=== PATIENT | female | born 1985 | race Asian ===

== ENCOUNTER 2017-08-05 15:04 | Emergency (ER) | payer MEDICAID ==
[2017-08-05 15:39] VITALS: BP 96/54
--- NOTE | 2017-08-05 16:28 | ED Physician Documentation ---
PD HPI SKIN - Stated complaint Stated Complaint: RASH - Chief complaint Chief Complaint: Wound - History obtained from History obtained from: Patient - History of Present Illness Timing - onset: Other (She has a history of rosacea. 2 days ago she did some whitefish, she is not work sure what kind. About half an hour later developed itchy red rash of the face and neck, no other places. 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 - Present Medications Home Medications: Ambulatory Orders Medication Instructions Recorded Confirmed hydrOXYzine PAMOATE [Vistaril] 25 mg PO Q6H PRN #15 capsule 08/05/17 predniSONE [Deltasone] 60 mg PO DAILY 5 Days tablet 08/05/17 - Allergies Allergies/Adverse Reactions: Allergies Allergy/AdvReac Type Severity Reaction Status Date / Time No Known Drug Allergies Allergy Verified 08/05/17 15:40 - Social History Does the pt smoke?: No Smoking Status: Never smoker Does the pt drink ETOH?: No Does the pt have substance abuse?: No - Immunizations Immunizations are current?: Yes - POLST Patient has POLST: No PD ED PE NORMAL - Vitals Vital signs reviewed: Yes - General General: Alert and oriented X 3, No acute distress - HEENT HEENT: PERRL, EOMI - Neck Neck: Supple, no meningeal sign, No bony TTP - Derm Derm: Other (She has A red raised rash over the anterior neck and face. She also has rosacea but she says that is chronic. The rash does not involve the arms, trunk except for very upper part of the chest anteriorly, or the palms.) - Neuro Neuro: Alert and oriented X 3, Normal speech - Psych Psych: Normal mood, Normal affect Results - Vitals Vitals: Vital Signs - 24 hr 08/05/17 15:25 Temperature 36.5 C Heart Rate 73 Respiratory 18 Rate Blood Pressure 96/54 L O2 Saturation 100 Oxygen O2 Source Room air Departure - Departure Disposition: 01 Home, Self Care Clinical Impression: Allergic reaction Qualifiers: Encounter type: initial encounter Qualified Code(s): T78.40XA - Allergy, unspecified, initial encounter Condition: Good Record reviewed to determine appropriate education?: Yes Instructions: ED Allergic React Food Prescriptions: hydrOXYzine PAMOATE [Vistaril] 25 mg PO Q6H PRN #15 capsule PRN Reason: Itching predniSONE [Deltasone] 60 mg PO DAILY 5 Days tablet Comments: Call your doctor to arrange a follow-up appointment, make the next available appointment. In the interim, return anytime if worse or if new symptoms develop.
== END 2017-08-05 16:35 | disposition home or self-care (01) ==
LOC: ED 15:04
DX: T78.40XA Allergy, unspecified, initial encounter (principal); X58.XXXA Exposure to other specified factors, initial encounter
CPT/HCPCS: 99283

== ENCOUNTER 2018-04-27 10:48 | Emergency (ER) | payer MEDICAID ==
--- NOTE | 2018-04-27 12:02 | ED Physician Documentation ---
PD HPI SKIN - Stated complaint Stated Complaint: ALLERGIC REACTION/FACIAL SWELLING - Chief complaint Chief Complaint: Wound - History obtained from History obtained from: Patient - History of Present Illness Timing - onset: Yesterday Timing - duration: Days (1) Timing - details: Abrupt onset, Still present Location: Face, Neck Quality / character: Itchy, Painful, Burning, Discolored (red blotchy), Vesicular (tiny vesicles). No: Draining Improved by: No: Benadryl Associated symptoms: No: Fever, Myalgias Contributing factors: Exposed to soap / lotion (had used a different soap, but has had this in the past couple of times without that soap. So not clear the cause. No new foods.). 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 04/27/18 Cetirizine [ZyrTEC] 10 mg PO DAILY #20 tablet 04/27/18 Dexamethasone [Decadron] 4 mg PO DAILY #5 tablet 04/27/18 Diphenhydramine HCl/Zinc Acet 04/27/18 [Benadryl Itch Stopping Crm] diphenhydrAMINE [Benadryl] 04/27/18 - Allergies Allergies/Adverse Reactions: Allergies Allergy/AdvReac Type Severity Reaction Status Date / Time No Known Drug Allergies Allergy Verified 04/27/18 12:32 - Social History Does the pt smoke?: Yes Smoking Status: Current some day smoker Does the pt drink ETOH?: No Does the pt have substance abuse?: No - Immunizations Immunizations are current?: Yes - POLST Patient has POLST: No PD ED PE NORMAL - Vitals Vital signs reviewed: Yes - General General: Alert and oriented X 3, No acute distress, Well developed/nourished - HEENT HEENT: Ears normal, Moist mucous membranes, Pharynx benign, Other (face with blotchy red rash with faint tiny vesicles. No weeping. Tender and swelling. ) - Neck Neck: Supple, no meningeal sign, No adenopathy - Cardiac Cardiac: RRR, No murmur - Respiratory Respiratory: Clear bilaterally Results - Vitals Vitals: Vital Signs - 24 hr 04/27/18 12:23 Temperature 36.7 C Heart Rate 71 Respiratory 16 Rate Blood Pressure 112/77 O2 Saturation 100 Oxygen O2 Source Room air PD MEDICAL DECISION MAKING - Sepsis Event Vital Signs: Vital Signs - 24 hr 04/27/18 12:23 Temperature 36.7 C Heart Rate 71 Respiratory 16 Rate Blood Pressure 112/77 O2 Saturation 100 Oxygen O2 Source Room air Departure - Departure Disposition: 01 Home, Self Care Clinical Impression: Facial rash Condition: Stable Record reviewed to determine appropriate education?: Yes Instructions: ED Dermatitis Atopic Eczema Follow-Up: Namita Lange MD [Primary Care Provider] - Prescriptions: Betamethasone Valerate 1 applic TP BID #15 cream..g. Cetirizine [ZyrTEC] 10 mg PO DAILY #20 tablet Dexamethasone [Decadron] 4 mg PO DAILY #5 tablet Comments: Use the Steroid cream and oral tablets as directed. Cetirizine antihistamine daily for a week or so. Continue Benadryl every 6 hours if needed for itching. Recheck if not improved over the next 2-3 days, sooner if worse or if other symptoms develop, such as fever. Discharge Date/Time: 04/27/18 12:34
[2018-04-27] MEDS ORDERED: CETIRIZINE 10 MG TABLET PO STA (12:12)
[2018-04-27] MEDS ORDERED: DEXAMETHASONE 10 MG/ML VIAL PO STA (12:12)
[2018-04-27 12:24] VITALS: BP 112/77
== END 2018-04-27 12:34 | disposition home or self-care (01) ==
LOC: ED 10:48
DX: R21 Rash and other nonspecific skin eruption (principal); F17.200 Nicotine dependence, unspecified, uncomplicated
CPT/HCPCS: 99283; A9270

== ENCOUNTER 2018-12-15 11:45 | Emergency (ER) | payer SELFPAY ==
[2018-12-15 12:01] VITALS: BP 117/66
--- NOTE | 2018-12-15 13:19 | ED Physician Documentation ---
PD HPI SKIN - Stated complaint Stated Complaint: POSS ALLERGIC REACTION - Chief complaint Chief Complaint: Allergic Rx - History obtained from History obtained from: Patient - History of Present Illness Timing - onset: How many days ago (3) Timing - duration: Days (3) Timing - details: Gradual onset, Still present Review of Systems Constitutional: denies: Fever Nose: reports: Rhinorrhea / runny nose (mild). 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 12/15/18 Cetirizine [ZyrTEC] 10 mg PO DAILY #30 tablet 12/15/18 Dexamethasone [Decadron] 4 mg PO DAILY #7 tablet 12/15/18 - Allergies Allergies/Adverse Reactions: Allergies Allergy/AdvReac Type Severity Reaction Status Date / Time No Known Drug Allergies Allergy Verified 04/27/18 12:32 - Social History Does the pt smoke?: No Smoking Status: Never smoker Does the pt drink ETOH?: No Does the pt have substance abuse?: No - Immunizations Immunizations are current?: Yes - POLST Patient has POLST: No PD ED PE NORMAL - Vitals Vital signs reviewed: Yes - General General: Alert and oriented X 3, No acute distress, Well developed/nourished - HEENT HEENT: Atraumatic, Ears normal, Moist mucous membranes, Pharynx benign - Neck Neck: Supple, no meningeal sign, No adenopathy - Cardiac Cardiac: RRR, No murmur - Respiratory Respiratory: Clear bilaterally - Derm Derm: Normal color, Warm and dry, Other (red blotchy rash that is slightly raised but without vesicles on face and anterior neck. ) - Neuro Neuro: Alert and oriented X 3, No motor deficit, Normal speech Results - Vitals Vitals: Oxygen O2 Source Room air PD MEDICAL DECISION MAKING - ED course Complexity details: considered differential (local to face and neck. Not on meds for sun sensitivity and was not in the sun. No obvious topical cause (low allergen lotion, no makeup). Not sure of the cause. She is seeing heat reader in [place] in a month (referred due to prior similar episodes without cause as well).), d/w patient Departure - Departure Disposition: Home, Self Care Clinical Impression: Facial dermatitis Condition: Stable Record reviewed to determine appropriate education?: Yes Instructions: ED Allergic Reaction Local Other Follow-Up: Namita Lange MD [Primary Care Provider] - Prescriptions: Betamethasone Valerate 1 applic TP BID #15 cream..g. Cetirizine [ZyrTEC] 10 mg PO DAILY #30 tablet Dexamethasone [Decadron] 4 mg PO DAILY #7 tablet Comments: Use hypoallergenic facial lotion for the dryness such as Eucerin or Lubriderm. Decadron steroid daily for the next week for presumed allergic reaction. You can use betamethasone topical steroid as well to help clear it up twice daily. Use cetirizine antihistamine daily for the next month or 2 until you see the heat reader to try to prevent recurrent episodes. Recheck if the current episode is not improved over the next 2 to 3 days. Forms: Activity restrictions Discharge Date/Time: 12/15/18 13:44
[2018-12-15] MEDS ORDERED: diphenhydrAMINE 25 MG CAPSULE PO STA (13:36)
[2018-12-15] MEDS ORDERED: DEXAMETHASONE 10 MG/ML VIAL PO STA (13:36)
[2018-12-15] MEDS ORDERED: CHERRY SYRUP 10 ML UDC PO ONE (13:36)
== END 2018-12-15 13:44 | disposition home or self-care (01) ==
LOC: ED 11:45
DX: L30.9 Dermatitis, unspecified (principal)
CPT/HCPCS: 99283; A9270

== ENCOUNTER 2021-08-26 03:38 | Emergency (ER) | payer MEDICAID ==
[2021-08-26 03:52] VITALS: BP 128/82
--- NOTE | 2021-08-26 03:54 | ED Physician Documentation ---
PD HPI SKIN - Stated complaint Stated Complaint: RASH ON BODY - Chief complaint Chief Complaint: Allergic Rx - History obtained from History obtained from: Patient - History of Present Illness Timing - onset: How many days ago (4-5) Timing - details: Gradual onset Pain level max: 0 Pain level now: 0 Location: Chest, Abdomen, RUE, LUE Quality / character: Itchy Associated symptoms: No: Fever, Facial swelling, Dyspnea Contributing factors: Unknown - Additional information Additional information: c/o pruritic rash x 4-5 days. rash is on BUE with fewer lesions noted on chest and abdomen. Denies h/o similar rash (has been seen for pruritic rashes in the past in this ED but those were on, and limited to, face). No apparent exposures to new medications, soaps/detergents. 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 12/15/18 Cetirizine [ZyrTEC] 10 mg PO DAILY #30 tablet 12/15/18 dexAMETHasone [Decadron] 4 mg PO DAILY #7 tablet 12/15/18 hydrOXYzine pamoate [Hydroxyzine 25 - 50 mg PO Q6HR PRN #20 cap 08/26/21 Pamoate] predniSONE [Deltasone] 40 mg PO DAILY 3 Days #6 tablet 08/26/21 - Allergies Allergies/Adverse Reactions: Allergies Allergy/AdvReac Type Severity Reaction Status Date / Time No Known Drug Allergies Allergy Verified 04/27/18 12:32 - Social History Does the pt smoke?: No Smoking Status: Never smoker Does the pt drink ETOH?: No Does the pt have substance abuse?: No - Immunizations Immunizations are current?: Yes - POLST Patient has POLST: No PD ED PE NORMAL - Vitals Vital signs reviewed: Yes - General General: Alert and oriented X 3, No acute distress, Well developed/nourished - HEENT HEENT: Moist mucous membranes, Other (no margo/intraoral edema/swelling) - Respiratory Respiratory: No respiratory distress, Clear bilaterally PD ED PE EXPANDED - Derm Derm: Papules (erythematous papules on BUE with few lesions on chest and abdomen. ) Results - Vitals Vitals: Oxygen O2 Source Room air PD MEDICAL DECISION MAKING - ED course Complexity details: considered differential, d/w patient ED course: pruritic exanthem on arms, chest , abdomen. No apparent inciting event/trigger. Will treat with atarax (inadequate relief with benadryl at home), prednisone. Departure - Departure Disposition: 01 Home, Self Care Clinical Impression: Rash and nonspecific skin eruption Condition: Good Instructions: ED Allergic Reaction General Other Prescriptions: hydrOXYzine pamoate [Hydroxyzine Pamoate] 25 - 50 mg PO Q6HR PRN #20 cap PRN Reason: Itching predniSONE [Deltasone] 40 mg PO DAILY 3 Days #6 tablet Comments: The cause of your rash is not clear at this time. You have been given a dose of prednisone (steroid) in the emergency department, as this often helps with nonspecific itchy rashes. Antihistamines also can help; you have indicated that the benadryl has not been effective. A prescription for a different antihistamine (hydroxyzine) has been electronically submitted to [facility] pharmacy in [place], which you can try instead of benadryl; the hydroxyzine is sometimes found to be more effective than benadryl (it can also cause more drowsiness, which can help with sleep if the itching has been disturbing your sleep). A prescription for 3 more days of prednisone has also been sent to the [facility] pharmacy. Discharge Date/Time: 08/26/21 04:26
[2021-08-26] MEDS ORDERED: predniSONE 20 MG TABLET PO STA (04:13)
== END 2021-08-26 04:26 | disposition home or self-care (01) ==
LOC: ED 03:38
DX: L29.9 Pruritus, unspecified (principal); R21 Rash and other nonspecific skin eruption
CPT/HCPCS: 99282; J7512

== ENCOUNTER 2021-12-19 14:50 | Emergency (ER) | payer MEDICAID ==
[2021-12-19 14:57] VITALS: BP 113/56
--- OUTSIDE RECORDS SUMMARY | 2021-12-19 15:20 | EXTERNAL MEDICAL SUMMARY RPT | Continuity of Care Document ---
:1985 Author Organization [facility] Address [address] [place] [address] Phone Care Team Providers Name Role Phone Lange Unavailable Unavailable Allergies No information. Encounters No information. Medications No information. Problems date description facility 20211110 Urticaria, unspecified [facility] [id number] Unspecified contact dermatitis, unspeci fied cause [facility] [id number] Other specified abnormal findings of bl ood chemistry [facility] [id number] Excessive and frequent menstruation wit h regular cycle [facility] [id number] Encounter for general adult medical exa mination without [facility] abno [id number] Dermatitis, unspecified [facility] Results No information.
--- NOTE | 2021-12-19 15:21 | ED Physician Documentation ---
History of Present Illness - Stated complaint Stated Complaint: ALLERGIES - Chief complaint Chief Complaint: Allergic Rx - Additonal information Additional information: 36-year-old female presents emergency department for further treatment of her chronic eczema and facial rash. Multiple ED visits for similar. She states that she just finished a 3-week long steroid taper and has been applying 0.5% triamcinolone cream to her rash twice daily. Despite this there has been no improvement in her rash and it remains very itchy. She is not able to see dermatology until February 08. She last saw her primary care doctor who instituted the steroid taper as well as the triamcinolone cream about 3 weeks ago. 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 12/15/18 Cetirizine [ZyrTEC] 10 mg PO DAILY #30 tablet 12/15/18 dexAMETHasone [Decadron] 4 mg PO DAILY #7 tablet 12/15/18 hydrOXYzine pamoate [Hydroxyzine 25 - 50 mg PO Q6HR PRN #20 cap 08/26/21 Pamoate] predniSONE [Deltasone] 40 mg PO DAILY 3 Days #6 tablet 08/26/21 Betamethasone Dipropionate 15 gm TP DAILY #15 gm 12/19/21 hydrOXYzine pamoate [Hydroxyzine 25 mg PO BID #20 cap 12/19/21 Pamoate] - Allergies Allergies/Adverse Reactions: Allergies Allergy/AdvReac Type Severity Reaction Status Date / Time No Known Drug Allergies Allergy Verified 12/19/21 14:56 - Social History Does the pt smoke?: No Smoking Status: Never smoker Does the pt drink ETOH?: No Does the pt have substance abuse?: No - Immunizations Immunizations are current?: Yes - POLST Patient has POLST: No PD ED PE NORMAL - General General: Alert and oriented X 3, No acute distress, Well developed/nourished - HEENT HEENT: Atraumatic, Pharynx benign - Neck Neck: Supple, no meningeal sign - Cardiac Cardiac: RRR, No murmur - Respiratory Respiratory: No respiratory distress, Clear bilaterally - Derm Derm: No: No rash (pruritic papular rash disseminated on torso, arms, legs and face. some scaling lesions. non vesicular) - Extremities Extremities: No deformity Results - Vitals Vitals: Vital Signs - 24 hr 12/19/21 14:51 Temperature 36.3 C L Heart Rate 75 Respiratory 16 Rate Blood Pressure 113/56 L O2 Saturation 100 Oxygen O2 Source Room air PD MEDICAL DECISION MAKING - ED course Complexity details: reviewed results, re-evaluated patient, d/w patient ED course: 36-year-old female who has a history of extensive atopic dermatitis and eczema comes to the emergency department for reevaluation of a rash that has failed to improve despite a oral steroid taper as well as triamcinolone cream. She is not able to see dermatology until 08 February. I will have her stop the triamcinolone and add betamethasone. Vistaril for itching. Clinically no findings to suggest cellulitis. Otherwise emergent return precautions discussed Departure - Departure Disposition: 01 Home, Self Care Clinical Impression: Atopic dermatitis Qualifiers: Atopic dermatitis type: unspecified Qualified Code(s): L20.9 - Atopic dermatitis, unspecified Condition: Stable Record reviewed to determine appropriate education?: Yes Prescriptions: Betamethasone Dipropionate 15 gm TP DAILY #15 gm hydrOXYzine pamoate [Hydroxyzine Pamoate] 25 mg PO BID #20 cap Comments: I have sent a prescription for a new ointment to the [facility] in [place]. Please apply this to your rash once daily. Stop applying the triamcinolone cream. I have also sent a prescription for Vistaril to help with itch. Use this cautiously it may make you sleepy. It is important you discuss with Dr. Lange this ED visit. I would like her to be aware that a new steroid cream has been prescribed. Continue follow-up with dermatology as already scheduled February 14. You can also use cetirizine to help with your itch. Use hypoallergenic soaps lotions. Avoid the use of any make-up.
== END 2021-12-19 15:34 | disposition home or self-care (01) ==
LOC: ED 14:50
DX: L20.9 Atopic dermatitis, unspecified (principal)
CPT/HCPCS: 99282; 99283